=== PATIENT | male | born 1970 | race Caucasian/White ===

== ENCOUNTER 2025-05-26 07:24 | Outpatient (CLI) | payer MEDICARE, MEDICAID, SELFPAY ==
--- NOTE | ~2025-05-26 | XR_ITS ---
XR toe 1st RT min 2V 05/26/2025 07:49 INDICATION: Right first toe pain PROCEDURE: 3 views right first toe COMPARISON: No prior studies for comparison. FINDINGS: Fracture, dislocation or subluxation is not identified. There is mild osteoarthritis of the first MTP joint. The soft tissues appear within normal limits. No foreign bodies are identified. Lisfranc joint intact. IMPRESSION: 1: Mild osteoarthritis of the first MTP joint. Reviewed, dictated and finalized at location O.
--- OUTSIDE RECORDS SUMMARY | 2025-05-26 07:37 | XMS_ITS | Clinical Summary ---
Author Organization [facility] Address [address] [place] [address] Phone Care Team Providers Care Truer Pin[employer] Wheel Name Role Phone Jean Cochran Primary Care Provider [phone] Allergies No known active allergies Medications lisinopril (PRINIVIL, ZESTRIL) 20 MG Tablet Take 20 mg by mouth daily. Active warfarin (COUMADIN) 10 MG Tablet Take 10 mg by mouth daily. Active furosemide (LASIX) 40 MG Tablet Take 80 mg by mouth daily. Active atorvastatin (LIPITOR) 20 MG Tablet Take 20 mg by mouth daily. Active omeprazole (PRILOSEC) 20 MG CAPSULE DELAYED RELEASE Take 20 mg by mouth daily. Active Aspirin 81 MG Tablet Take 81 mg by mouth daily. Active amiodarone (CORDARONE) 200 MG Tablet Take 200 mg by mouth daily. Active carvedilol (COREG) 12.5 MG TabletIndication s:6.25 mg PM dose Take 12.5 mg by mouth 2 times daily. Indications : 6.25 mg PM dose Active spironolactone (ALDACTONE) 25 MG Tablet Take 25 mg by mouth daily. Active Active Problems Problem Noted Date Diagnosed Date Atrial fibrillation and flutter 03/29/2019 Hyperlipidemia 03/29/2019 Aortic stenosis 03/29/2019 Type 2 diabetes mellitus, wi thout long-term current use of insulin 03/29/2019 Obesity 03/29/2019 S/P aortic valve replacement with prosthetic adam ve 03/29/2019 Family History Medical History Relation Name Comments Cancer Father Heart Disease Maternal Grandmother Heart Disease Mother Hypertension Mother Relation Name Status Comments Father Maternal Grandmother Mother Alive Social History Tobacco Use Types Packs/Day Years Used Date Smoking Tobacco: Former Cigarettes Q uit: 01/18/1996 Smokeless Tobacco: Former Alcohol Use Standard Drinks/Week Comments Not Currently 0 (1 standard drink = 0.6 oz pur e alcohol) Sexually Active Control Partners Comments Yes Female Sex and Gender Information Value Date Recorded Sex Assigned at Not on file Legal Sex Male 8:46 PM CDT Gender Identity Not on file Sexual Orientation Not on file Last Filed Vital Signs Vital Sign Reading Time Taken Comments Blood Pressure 129/82 05/28/2019 7:00 AM CDT Pulse 61 05/28/2019 7:00 AM CDT Temperature 36.6 C (97.8 F) 05/28/2019 7:15 AM CDT Respiratory Rate 15 05/28/2019 7:00 AM CDT Oxygen Saturation 97% 05/28/2019 7:00 AM CDT Inhaled Oxygen Concentration - - Weight 138.8 kg (306 lb) 05/28/2019 3:23 AM CDT Height 180.3 cm (5' 11) 05/28/2019 3:23 AM CDT Body Mass Index 42.68 05/28/2019 3:23 AM CDT Plan of Treatment Health Maintenance Due Date Last Done Comments Diabetes: Eye Exam 1970 Diabetes: Foot Exam 1970 Diabetes: Hemoglobin A1c 1970 Hepatitis C Virus (HCV) Screening 1970 TdaP Immunization 1970 Hepatitis B Immunization (1 of 3 - 19+ 3-dose series) 1989 Pneumococcal Immunization (5 0+ years) (1 of 2 - PCV) 1989 Cologuard 2015 Colonoscopy 2015 Colorectal Cancer Screening 2015 Immunochemical Fecal Occult Blood 2015 Diabetes: Nephropathy Screening 05/28/2020 05/28/2019 Zoster Immunization (1 of 2) 2020 Influenza Immunization (#1) 2025 SARS-COV-2 Immunization (3 - season) 2025 02/23/2021, 02/02/2021 Respiratory Syncytial Virus (RSV) Immunization (Adult) (1 - 1-dose 75+ series) 2045 Human Papillomavirus (HPV) Immunization Aged Out No longer eligible b ased on patient's age to complete this topic Meningococcal Immunization (ACWY) Aged Out No longer eligible b ased on patient's age to complete this topic Rotavirus Immunization Aged Out No lo nger eligible based on patient's age to complete this topic Procedures Procedure Name Priority Date/Time Associated Diagnosis Comments CMP (COMPREHENSIVE METABOLIC PANEL) STAT 05/28/2019 3:25 AM CDT from Last 3 Months or Most Recently Relevant to Health Maintenance Results * (ABNORMAL) CMP (Comprehensive Metabolic Panel) (05/28/2019 3:25 AM CDT) SODIUM 139 136 - 144 mmol/L 05/28/2019 4:01 AM CDT [facility] POTASSIUM 3.9 3.5 - 5.1 mmol/L 05/28/2019 4:01 AM CDT [facility] CHLORIDE 103 100 - 110 mmol/L 05/28/2019 4:01 AM CDT [facility] CO2, VENOUS 24 22 - 32 mmol/L 05/28/2019 4:01 AM CDT [facility] ANION GAP 15.9 8.0 - 20.0 mmol/L 05/28/2019 4:01 AM CDT [facility] GLUCOSE 122(H) 70 - 99 mg/dL 05/28/2019 4:01 AM CDT [facility] BUN 20 6 - 20 mg/dL 05/28/2019 4:01 AM T [facility] CREATININE, BLOOD 1.01 0.80 - 1.30 mg/dL 05/28/2019 4:01 AM T [facility] BUN/CREATININE RATIO 20 12 - 20 ratio 05/28/2019 4:01 AM T [facility] TOTAL PROTEIN 7.2 6.0 - 8.3 g/dL 05/28/2019 4:01 AM T [facility] ALBUMIN 4.0 3.5 - 5.2 g/dL 05/28/2019 4:01 AM T [facility] Comment: The colormetric methods used for the determination of Albumin may lead to falsely elevated test results in patients suffering from renal failure or insufficiency due to interference with other proteins. A/G RATIO 1.3 1.0 - 2.0 05/28/2019 4:01 AM CDT [facility] CALCIUM 9.0 8.9 - 10.3 mg/dL 05/28/2019 4:01 AM CDT [facility] T BILI <=0.2 <=1.2 mg/dL 05/28/2019 4:01 AM CDT [facility] SGOT (AST) 21 <=40 U/L 05/28/2019 4:01 AM CDT [facility] SGPT (ALT) 27 <=41 U/L 05/28/2019 4:01 AM CDT [facility] ALKALINE PHOSPHATASE 60 40 - 130 U/L 05/28/2019 4:01 AM CDT [facility] GFR, EST. NONAFRICAN >60 >=60 05/28/2019 4:01 AM CDT [facility] GFR, EST. >60 >=60 019 4:01 AM CDT [facility] Comment: Creatinine Clearance is the preferred criteria for selecting drug dose adjustments in renally impaired patients. The GFR is provided as additional pertinent clinical information. GFR is reported in mL/min/1.73 sq m. Blood specimen (specimen) Venous Catheter (IV) / Unknown 05/28/2019 3:25 AM CDT 05/28/2019 3:33 AM CDT us Nicolás Soliman MD CHEMISTRY ORDERABLES Nikole l Result [facility] [address] [place] [address] from Last 3 Months or Most Recently Relevant to Health Maintenance Advance Directives * Full Code (Latest Code Status on File) Date Activated Date Inactivated Comments 03/28/2019 12:46 PM 03/30/2019 4:48 PM CPR-Full Storm atment: FULL ARREST: Attempt Resuscitation/CPR wit intubation and mechanical ventilation. PRE-ARREST: Use entire range of life support measures to stabilize the patient. Care Teams [employer] Wheel Relationship Specialty Start Date End Date Jean Cochran, [facility] [address] [place] [id number] PCP - General Physician Sinter Press Operator 01/17/19
--- OUTSIDE RECORDS SUMMARY | 2025-05-26 07:37 | XMS_ITS | Clinical Summary ---
Author Organization [facility] Address [address] [place] [address] Care Team Providers Care Assistant Cross Country Coach Name Role Phone Deepti Palacios MD Unavailable [phone] Jean Cochran Primary Care Provider [phone] Soniya Francisco PT Unavailable Unavailable Allergies No known active allergies Medications aspirin 81 mg tablet Take 1 tablet (81 mg total) by mouth daily Active omeprazole (PriLOSEC) 20 mg capsuleIndicat ions:Reflux Esophagitis,ga stroesophageal reflux disease Take 1 capsule (20 mg total) by mouth daily Active lisinopril (PRINIVIL,ZEST RIL) 20 mg tablet Take 1 tablet (20 mg total) by mouth daily Active fenofibrate (TRIGLIDE) 160 mg tablet Take 1 tablet (160 mg total) by mouth daily 03/09/20 20 Active atorvastatin (LIPITOR) 40 mg tablet Take 1 tablet (40 mg total) by mouth nightly 90 tablet 3 12/09/19 23 Active prothrombin time test strips strip 1 strip once a week 6 strip 11 11/09/19 24 Active Additional Information Patient not taking.Reported on 03/08/2025 warfarin (COUMADIN) 6 mg tablet Take 1 tablet (6 mg total) by mouth 2 (two) times a week Thursday and Thursday with 1 mg tab to total 7 mg. Active warfarin (COUMADIN) 1 mg tablet Take 1 tablet (1 mg total) by mouth 2 (two) times a week Thursday and Thursday with 6 mg tab to total 7. Active spironolactone (ALDACTONE) 25 mg tablet TAKE 1 TABLET(25 MG) BY MOUTH DAILY 30 tablet 11 05/30/20 24 Active warfarin (COUMADIN) 7.5 mg tablet Take 1 tablet (7.5 mg total) by mouth daily 90 tablet 1 10/17/19 25 Active carvediloL (COREG) 12.5 mg tablet Take 1 tablet (12.5 mg total) by mouth 2 (two) times a day with meals 180 tablet 3 12/03/19 25 026 Active warfarin (COUMADIN) 2 mg tablet TAKE 1 TABLET(2 MG) BY MOUTH DAILY 90 tablet 3 12/09/19 25 Active warfarin (COUMADIN) 5 mg tablet TAKE 1 TABLET(5 MG) BY MOUTH DAILY 90 tablet 3 02/01/20 25 Active furosemide (LASIX) 80 mg tablet TAKE 1 TABLET(80 MG) BY MOUTH DAILY 90 tablet 3 05/26/20 25 Active furosemide (LASIX) 80 mg tablet TAKE 1 TABLET(80 MG) BY MOUTH DAILY 90 tablet 3 02/01/20 24 025 Discontinued Active Problems Problem Noted Date Diagnosed Date Numbness 05/05/2024 Acute headache 05/05/2024 Transient ischemic attack (TIA) 05/05/2024 Hypertensive encephalopathy 05/05/2024 Valvular heart disease 04/04/2024 Overview (03/08/2025): Patient presented with moderate to severe AI due to a bicuspid valve--he was short of breath. Dr. Reyes replaced the aortic root and ascending aorta with a [employer] composite graft and a 27 mm Sebastian mechanical AV on 24 Jan 2009. On coumadin. Trivial MR/TR on echo 27 Jan 2023. Mechanical aortic valve with a velocity 2.7 m/sec. LVEF 55 to 60%. Assessment & Plan (10/04/2024 10:49 AM SOFTWARE RELIABILITY ENGINEER): We discussed the major surgery from 15 years ago. Also discussed the last echo from a year and a half ago showing good prosthetic aortic valve function. We should get another echocardiogram before next office visit in 1 year and he is agreeable. Assessment & Plan (04/05/2024 11:12 AM CDT): Patient has had recent nosebleeds but okay now. Continue same medical regimen I made a copy of his mechanical aortic valve card and showed him what the valve looks like on [employer]. Elevated LDL cholesterol level 04/04/2024 Overview (04/13/2024): LDL of 109 mg/dl on 12 March 2022. Trigl. of 170 mg/dl. LDL of 61 mg/dL on 05 April 2024. Trigl. of 122 mg/dL. On Lipitor 40 and fenofibrate 160 mg. Normal coronaries on cath. of 30 November 2018 (RL). Again normal coronaries by right radial approach on 19 October 2023 (EAS). Assessment & Plan (10/04/2024 10:50 AM SOFTWARE RELIABILITY ENGINEER): We discussed LDL cholesterol goal of less than 100 mg/dL. He was at goal 6 months ago. No change in anti-lipid therapy at this time. Assessment & Plan (04/05/2024 11:13 AM CDT): We discussed LDL cholesterol goal of less than 100 mg/dL. He was slightly over that goal 2 years ago. He is willing to get another fasting lipid/liver profile now. No change in Lipitor and fenofibrate dosing at this time. Shortness of breath 10/09/2023 KEVIN (obstructive sleep apnea) 02/27/2023 Other cardiac arrhythmia 01/27/2023 Assessment & Plan (01/27/2023 1:44 PM CDT): While in the ED, had to noticed moments of possible second-degree AV block with dropped beats. EKG on admission noted first-degree AV block. Since admission has been monitored on telemetry with persistent first-degree AV block. Cardiology consulted in the ED. repeat echocardiogram ordered and final report pending. Cardiology in recommends outpatient 30 day event monitor. Plan: Cardiology on consult. Thirty day outpatient event monitor recommended per Cardiology. Atypical chest pain 01/27/2023 Assessment & Plan (01/27/2023 1:45 PM CDT): Complaints of atypical chest pain with constant squeezing mild pain. Noted to have associated shortness of breath. Symptoms have since resolved since admission. Reports no change with exertion or positional changes. Symptoms not reproduced with palpation. In the ED, serial troponins negative. EKG with nonspecific ST and T- wave changes. Cardiology consulted, appreciate further recommendations. Plan: 30 day event monitor now recommended. Morbid obesity 01/27/2023 Assessment & Plan (01/27/2023 1:46 PM CDT): BMI of 40.53. Recommend continued lifestyle modification. TSH on admission within normal limits. History of cardiomyopathy 01/27/2023 Assessment & Plan (01/27/2023 1:52 PM CDT): Prior history of cardiomyopathy. At most recent echocardiogram in 2021, had an EF of 50-55%. Previously on home medications of Lasix 80 mg p.o. daily, carvedilol 12.5 mg q.a.m. and 6.25 mg q.h.s., and lisinopril 20 mg daily. Carvedilol held due to bradycardia. Lasix and lisinopril continued throughout admission. Plan: Continue lisinopril 20 mg daily and Lasix 80 mg p.o. daily. Carvedilol held due to bradycardia. LIAM (acute kidney injury) 05/13/2022 History of CVA with residual deficit 05/11/2022 Hyperlipidemia 05/11/2022 First degree AV block 05/11/2022 Assessment & Plan (01/27/2023 1:43 PM CDT): To EKG on admission with first-degree heart block. Additionally noted to have possible subsequent periods of missed beats. Cardiology consulted at the ED who recommends outpatient 30 day event monitor. Repeat echocardiogram ordered and final results pending at this time. Plan: Continues on telemetry at this time. Reports symptoms have improved at this time. Cardiology on consult, 30 day event monitor recommended. Subtherapeutic anticoagulation 05/11/2022 Chronic systolic congestive heart failure 2018 Overview (10/04/2024): Severe LV systolic dysfunction on echo November 2018. Normal LVEF on echo July 2019. Normal LVEF on echo April 2022. Normal LVEF on echo 27 Jan 2023. LVEF of 55-60%. On spironolactone 25 mg daily, lisinopril 20 mg daily, Lasix 80 mg daily and Coreg 12.5 mg in the morning and 6.25 mg in the evening.. Assessment & Plan (10/04/2024 10:50 AM SOFTWARE RELIABILITY ENGINEER): Discussed last echo from year and a half ago showing normal LV function. We discussed all his guideline directed medications. No changes will be made as he is doing well and his blood pressure is good at 122/69. Assessment & Plan (04/05/2024 11:14 AM CDT): We discussed LV dysfunction noted 5 years ago. Also discussed normal echoes the last 3 times they were done. He has not having any chest pain or shortness of breath. No change in medical regimen here. Assessment & Plan (05/28/2019 9:43 AM CDT): The patient has severe LV dysfunction which has reportedly improved with the restorationism of sinus rhythm. He has a left bundle branch block pattern on his resting ECG which has been present since at least 2013. The patient will need to have his LV function followed serially. If he is found to have persistent severe LV dysfunction despite efforts at maintenance of sinus rhythm and medical therapy, biventricular pacing may be a very beneficial intervention. LBBB (left bundle branch block) 05/28/2019 Assessment & Plan (01/27/2023 1:39 PM CDT): History of left bundle-branch block chronically. Noted on most recent EKG. Complaints of chest tightness on admission. Nonspecific ST T-wave changes noted. Serial troponins were negative. Cardiology on consult. Plan: Cardiology consulted, appreciate further recommendations. Continue carvedilol 12.5 mg q.a.m. and 6.25 mg q.h.s.. Continue aspirin daily. Atrial flutter 05/20/2019 Overview (10/04/2024): S/P radiofrequency ablation of SVT on 21 June 2019 (Thomas). . Tikosyn caused WCT. On Coumadin also for his mechanical aortic valve. Assessment & Plan (10/04/2024 10:49 AM SOFTWARE RELIABILITY ENGINEER): Patient denies any palpitations, dizziness or syncope. EKG from April 2024 showed what appeared to be sinus rhythm with a long first- degree AV block. No significant bleeding issues with Coumadin so we should continue. 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 He tells me that his last echocardiogram (which I do not have access to) showed a return to normal function. This would be a strong indicator that the patient's cardiomyopathy may be almost entirely tachycardia-mediated. I recommended that the patient undergo EP study and ablation of his cavotricuspid isthmus. His 12 lead ECGs have not demonstrated atrial fibrillation (only right atrial flutter), and at this point, he does not definitively need left atrial ablation/pulmonary vein isolation, though it may be necessary in the future if he develops recurrence of atrial fibrillation. I explained the risks and benefits of flutter ablation, and the patient would like to proceed. My office will make the appropriate arrangements. Atrial fibrillation 05/20/2019 Overview (05/31/2019): Added automatically from request for surgery [id number] H/O mechanical aortic valve replacement 12/01/19 Assessment & Plan (01/27/2023 1:41 PM CDT): History of aortic valve replacement in 2008. Denies any substance abuse history. Reports compliance with Coumadin. Cardiology consulted in the ED. repeat echocardiogram ordered and final results pending. Denies any syncope or presyncope at this time. Most recent INR on 01/27 of 3.0. Plan: Continue warfarin 8 mg 4 days a week and 9 mg 3 days a week. Cardiology on consult. Pneumonia 11/30/2018 Essential hypertension 11/30/2018 Resolved Problems Problem Noted Date Diagnosed Date Resolved Date Shortness of breath 10/09/2023 10/09/19 24 Encounters Date Type Department Care Team Description 05/19/2025 7:30 AM CDT [address] [address] Longstanding persistent atrial fibrillation (HCC) 05/19/2025 Anticoagulation Visit [facility] at [address] [phone] Irma Grant MA 05/19/2025 Results Follow-Up [facility] at [address] [address] Irma Grant MA Protime-INR 05/15/2025 Anticoagulation Visit [facility] at [address] [address] Irma Grant MA 05/13/2025 7:30 AM CDT Lab [address] [address] Longstanding persistent atrial fibrillation (HCC) 05/12/2025 Telephone [facility] at [address] [phone] Irma Grant MA 05/09/2025 8:45 AM CDT Lab [address] [address] Longstanding persistent atrial fibrillation (HCC) 05/08/2025 Telephone [facility] at [address] [phone] Ricardo Norton MD 05/06/2025 7:45 AM CDT Lab [address] [address] Longstanding persistent atrial fibrillation (HCC) 04/26/2025 7:25 AM CDT Lab [address] [address] Longstanding persistent atrial fibrillation (HCC) 04/26/2025 Anticoagulation Visit [facility] at [address] [address] Irma Grant MA 03/16/2025 9:25 AM CDT Lab [address] [address] Longstanding persistent atrial fibrillation (HCC) 03/08/2025 10:15 AM CDT Office Visit [facility] at [address] [place] [address] Carole Hunter MD KEVIN (obstructive sleep apnea) (Primary Dx); Hypersomnia; Obesity, unspecified class, unspecified obesity type, unspecified whether serious comorbidity present 03/08/2025 9:25 AM CDT Lab [facility] [address] [place] [address] Longstanding persistent atrial fibrillation (HCC) 03/08/2025 Anticoagulation Visit [facility] at [address] [place] [phone] Irma Grant MA 03/08/2025 Results Follow-Up [facility] at [address] [place] [phone] Irma Grant MA Protime-INR from Last 3 Months Surgical History Surgery Date Site/Laterality Comments APPENDECTOMY HAND SURGERY Right MECHANICAL AORTIC VALVE REPLACEMENT 01/24/2009 Medical History Medical History Date Comments Coronary artery disease Hypertension Bicuspid aortic valve Atrial fibrillation (HCC) Hyperlipidemia Arthritis Stroke (HCC) Family History Medical History Relation Name Comments Heart disease Brother Cancer Father Diabetes Mother Relation Name Status Comments Brother Father Mother Alive Social History Tobacco Use Types Packs/Day Years Used Date Smoking Tobacco: Former Cigarettes Q uit: 09/21/2011 Smokeless Tobacco: Current Chew Tobacco Cessation:Ready to Q uit: Not Asked; Counseling Given: Not Answered Alcohol Use Standard Drinks/Week Comments Not Currently 0 (1 standard drink = 0.6 oz pur e alcohol) Social Connection and Isolation Panel Answer Date Recorded In a typical week, how many times do you talk on the phone with family, friends, or neighbors? More than three times a week 01/27/2023 How often do you get togethe r with friends or relatives? Never 01/27/2023 How often do you attend chur ch or yazdanism services? Never 01/27/2023 Do you belong to any clubs o r organizations such as religion groups, unions, fraternal or athletic groups, or school groups? No 01/27/2023 How often do you attend meet ings of the clubs or organizations you belong to? Never 01/27/2023 Are you , , di vorced, , never , or living with a partner? 01/27/2023 AUDIT-C Answer Date Recorded Q1: How often do you have a drink containing alcohol? Never 01/27/2023 Q2: How many drinks containi ng alcohol do you have on a typical day when you are drinking? Patient does not drink Q3: How often do you have si x or more drinks on one occasion? Never 01/27/2023 Overall Financial Resource Strain (CARDIA) Answe r Date Recorded How hard is it for you to pa y for the very basics like food, housing, medical care, and heating? Hard 01/27/2023 PHQ-2 Answer Date Recorded PHQ-2 Score 0 05/13/2019 Hunger Vital Sign Answer Date Recorded Within the past 12 months, y ou worried that your food would run out before you got the money to buy more. Sometimes true Within the past 12 months, t he food you bought just didn't last and you didn't have money to get more. Sometimes true 05/2023 PRAPARE - Transportation Answer Date Re corded In the past 12 months, has l ack of transportation kept you from medical appointments or from getting medications? No 05/2023 In the past 12 months, has l ack of transportation kept you from meetings, work, or from getting things needed for daily living? No 01/27/2023 Housing Stability Vital Sign Answer Reagan e Recorded In the last 12 months, was t here a time when you were not able to pay the mortgage or rent on time? No 01/27/2023 In the last 12 months, how many places have you lived? 1 01/27/2023 In the last 12 months, was t here a time when you did not have a steady place to sleep or slept in a intermediate (including now)? No 01/27/2023 Personal Safety Answer Date Recorded Have you ever been in or are you currently in a harmful physical or emotional relationship or is someone making you feel afraid or unsafe? Denies 05/05/2024 Education Answer Date Recorded What is the highest level of school you have completed or the highest degree you have received? 12th grade 01/27/2023 Sex and Gender Information Value Date Recorded Sex Assigned at Not on file Legal Sex Male 12:55 AM SOFTWARE RELIABILITY ENGINEER Gender Identity Not on file Sexual Orientation Not on file Obstetrics History Last Filed Vital Signs Vital Sign Reading Time Taken Comments Blood Pressure 129/88 03/08/2025 10:09 AM CDT Pulse 64 03/08/2025 10:09 AM CDT Temperature 36.6 C (97.8 F) 05/05/2024 3:04 PM CDT Respiratory Rate 18 10/04/2024 10:31 AM SOFTWARE RELIABILITY ENGINEER Oxygen Saturation 96% 03/08/2025 10:09 AM CDT Inhaled Oxygen Concentration - - Weight 131.1 kg (289 lb) 03/08/2025 10:09 AM CDT Height 180.3 cm (5' 11) 03/08/2025 10:09 AM CDT Body Mass Index 40.31 03/08/2025 10:09 AM CDT Plan of Treatment Health Maintenance Due Date Last Done Comments Colon Cancer Screening-Colonoscopy 1970 Hepatitis C Screening 1970 Prostate Cancer Screening-PSA 1970 Hepatitis B Screening 1988 Regular Well Visit/Exam 18-64 1988 Pneumococcal vaccine <65 (1 of 2 - PCV) 1989 Depression Screening 11/28/2019 11/27/2018, 11/28/19 19 Zoster Vaccine (1 of 2) 2020 Covid-19 Vaccine (3 - season) 05/22/202501/2021, 02/02/2021 Influenza Vaccine (#1) 2025 08/02/2024, 2022 DTaP/Tdap/Td Vaccine (2 - Td or Tdap) 12/30/203207/2023 Medical Devices Implanted Type Area Analytical Consultant Device Identifier Shelf Expiration Date Model / Serial / Lot Mechanical Aortic Valve Implanted:Qty: 1 on 01/24/2009 by Shaw Dickerson MD Prosthetic Valve N/A: Heart [employer] / [id number] / Description:Mechanical Aorti c Valve Surgeon: Shaw Armstrong MD Hospital: [place], [place] Surgery Date: 24-Jan-2009 Hospital no: [id number] Position: Aortic Serial #: [id number] Size: 27 Device: Aortic Valve Conduit Analytical Consultant: [employer]IMolly Mcknight [id number] [facility] () [facility] [place] Procedures Procedure Name Priority Date/Time Associated Diagnosis Comments PROTIME-INR Routine 05/19/2025 7:36 AM CDT Longstanding persistent atrial fibrillation (HCC) PROTIME-INR Routine 05/13/2025 7:37 AM CDT Longstanding persistent atrial fibrillation (HCC) PROTIME-INR Routine 05/09/2025 8:44 AM CDT Longstanding persistent atrial fibrillation (HCC) PROTIME-INR Routine 05/06/2025 7:58 AM CDT Longstanding persistent atrial fibrillation (HCC) PROTIME-INR Routine 04/26/2025 7:30 AM CDT Longstanding persistent atrial fibrillation (HCC) PROTIME-INR Routine 03/16/2025 9:40 AM CDT Longstanding persistent atrial fibrillation (HCC) PROTIME-INR Routine 03/08/2025 9:26 AM CDT Longstanding persistent atrial fibrillation (HCC) from Last 3 Months Results * (ABNORMAL) Protime-INR (05/19/2025 7:36 AM CDT) PT 25.0(H) 10.2 - 13.5 sec LEIGHANN ROSAS ([place]) INR 2.25(H) 0.90 - 1.20 LEIGHANN ROSAS ([place]) Comment: Interpretive data Oral anticoagulant therapeutic ranges: Venous thromboembolism prophylaxis or treatment: 2.0-3.0 CARDIOLOGY Standard range: 2.0-3.0 High-intensity range: 2.5-3.5 Refer to indication-specific guidelines for appropriate target ranges for prosthetic heart valve replacement. Current interpretive data was last revised on 2019. Blood 05/19/2025 7:36 AM CDT 05/19/2025 8:02 AM CDT us Ricardo Norton MD LAB BLOOD ORDERABLES Final Re sult LEIGHANN ROSAS ([place]) [address] [facility] [place] [address] * (ABNORMAL) Protime-INR (05/13/2025 7:37 AM CDT) PT 20.4(H) 10.2 - 13.5 sec [facility] ([place]) INR 1.83(H) 0.90 - 1.20 [facility] ([place]) Comment: Interpretive data Oral anticoagulant therapeutic ranges: Venous thromboembolism prophylaxis or treatment: 2.0-3.0 CARDIOLOGY Standard range: 2.0-3.0 High-intensity range: 2.5-3.5 Refer to indication-specific guidelines for appropriate target ranges for prosthetic heart valve replacement. Current interpretive data was last revised on 2019. Blood 05/13/2025 7:37 AM CDT 05/13/2025 7:54 AM CDT Ricardo Norton MD LAB BLOOD ORDERABLES Final Re sult Performing Organization Address City/[facility] Co de Phone Number LEIGHANN ROSAS ([place]) [address] [facility] [place] [address] * (ABNORMAL) Protime-INR (05/09/2025 8:44 AM CDT) PT 29.1(H) 10.2 - 13.5 sec [facility] ([place]) INR 2.62(H) 0.90 - 1.20 [facility] ([place]) Comment: Interpretive data Oral anticoagulant therapeutic ranges: Venous thromboembolism prophylaxis or treatment: 2.0-3.0 CARDIOLOGY Standard range: 2.0-3.0 High-intensity range: 2.5-3.5 Refer to indication-specific guidelines for appropriate target ranges for prosthetic heart valve replacement. Current interpretive data was last revised on 2019. Blood 05/09/2025 8:44 AM CDT 05/09/2025 8:58 AM CDT us Ricardo Norton MD LAB BLOOD ORDERABLES Final Re sult Performing Organization Address City/[facility] Co de Phone Number LEIGHANN BowdenPABLO) 1 [facility] [place] [address] * (ABNORMAL) Protime-INR (05/06/2025 7:58 AM CDT) PT 68.1(H) 10.2 - 13.5 sec LEIGHANN ROSAS ([place]) Comment:Critical result call ed to and read back by Dr. Norton (Exchange_) on 05/06/2025 09:39:43 CDT_ to _Jelena Mackey. INR 6.25(C) 0.90 - 1.20 LEIGHANN ROSAS ([place]) Comment: Critical result called to and read back by Dr. Norton (Exchange_) on _05/06/2025 09:39:13 CDT to _Jelena Mackey. Interpretive data Oral anticoagulant therapeutic ranges: Venous thromboembolism prophylaxis or treatment: 2.0-3.0 CARDIOLOGY Standard range: 2.0-3.0 High-intensity range: 2.5-3.5 Refer to indication-specific guidelines for appropriate target ranges for prosthetic heart valve replacement. Current interpretive data was last revised on 2019. Blood 05/06/2025 7:58 AM CDT 05/06/2025 8:07 AM CDT us Ricardo Norton MD LAB BLOOD ORDERABLES Final Re sult LEIGHANN ROSAS ([place]) [address] [facility] [place] [address] * (ABNORMAL) Protime-INR (04/26/2025 7:30 AM CDT) PT 37.8(H) 10.2 - 13.5 sec LEIGHANN ROSAS ([place]) INR 3.43(H) 0.90 - 1.20 [facility] ([place]) Comment: Interpretive data Oral anticoagulant therapeutic ranges: Venous thromboembolism prophylaxis or treatment: 2.0-3.0 CARDIOLOGY Standard range: 2.0-3.0 High-intensity range: 2.5-3.5 Refer to indication-specific guidelines for appropriate target ranges for prosthetic heart valve replacement. Current interpretive data was last revised on 2019. Blood 04/26/2025 7:30 AM CDT 04/26/2025 7:39 AM CDT Ricardo Norton MD LAB BLOOD ORDERABLES Final Re sult Performing Organization Address [facility] Co de Phone Number LEIGHANN ROSAS ([place]) 1 [facility] [address] [place] [address] * (ABNORMAL) Protime-INR (03/16/2025 9:40 AM CDT) PT 42.1(H) 9.7 - 13.0 sec [facility] ([place]) INR 3.79(H) 0.90 - 1.20 [facility] ([place]) Comment: Interpretive data Oral anticoagulant therapeutic ranges: Venous thromboembolism prophylaxis or treatment: 2.0-3.0 CARDIOLOGY Standard range: 2.0-3.0 High-intensity range: 2.5-3.5 Refer to indication-specific guidelines for appropriate target ranges for prosthetic heart valve replacement. Current interpretive data was last revised on 2019. Blood 03/16/2025 9:40 AM CDT 03/16/2025 10:03 AM CDT us Ricardo Norton MD LAB BLOOD ORDERABLES Final Re sult Performing Organization Address [facility] Co de Phone Number LEIGHANN ROSAS ([place]) [address] [facility] [place] [address] * (ABNORMAL) Protime-INR (03/08/2025 9:26 AM CDT) PT 50.8(H) 9.7 - 13.0 sec [facility] ([place]) INR 4.56(H) 0.90 - 1.20 [facility] ([place]) Comment: Interpretive data Oral anticoagulant therapeutic ranges: Venous thromboembolism prophylaxis or treatment: 2.0-3.0 CARDIOLOGY Standard range: 2.0-3.0 High-intensity range: 2.5-3.5 Refer to indication-specific guidelines for appropriate target ranges for prosthetic heart valve replacement. Current interpretive data was last revised on 2019. Blood 03/08/2025 9:26 AM CDT 03/08/2025 10:10 AM CDT us Ricardo Norton MD LAB BLOOD ORDERABLES Final Re sult [facility] ([place]) 1 [facility] [place] [address] from Last 3 Months Insurance [facility] MEDICARE ADVANTAGE PATIENT'S CHOICE [facility] Advance Directives For more information, please contact: [phone] * Full Code (Latest Code Status on File) Date Activated Date Inactivated Comments 05/05/2024 3:28 AM 05/05/2024 10:35 PM * Full Code Date Activated Date Inactivated Comments 10/19/2023 9:19 AM 10/19/2023 5:11 PM * Full Code Date Activated Date Inactivated Comments 05/11/2022 10:01 AM 05/14/2022 5:16 PM * Full Code Date Activated Date Inactivated Comments 11/28/2018 12:08 AM 12/01/2018 2:24 AM Care Teams Assistant Cross Country Coach Relationship Specialty Start Date End Date Jean Cochran PA [address] [place] [address] PCP - General Family Practice 04/29/19 [place] [id number] [address] Consulting Physician Cardiology 11/30/18 Soniya Francisco PT Physical Therapist Physical Therapy 06/23/22
== END 2025-05-26 07:25 | disposition home or self-care (01) ==
LOC: CHSIMG 07:34
PROVIDERS: PCP Physician Assistant; Visit Provider Physician Assistant
DX: M79.674 Pain in right toe(s) (principal); M19.071 Primary osteoarthritis, right ankle and foot
CPT/HCPCS: 73660